=== PATIENT | male | born 1940 | race Caucasian/White ===

== ENCOUNTER 2018-06-02 07:20 | Emergency (ER) | payer MEDICARE, BC ==
[2018-06-02] MEDS ORDERED: 0.9 % SODIUM CHLORIDE 1000ML 1,000 ML IV PRN (07:47)
--- NOTE | 2018-06-02 08:02 | Emergency Department Record ---
History of Present Illness - General Chief complaint: Weakness Stated complaint: WEAKNESS,FALL Time Seen by Provider: 06/02/18 07:32 Source: Patient, RN notes reviewed Mode of Arrival: Ambulatory - History of Present Illness Initial comments: fall yesterday at 5pm and complaining of low back pain and stated prior to fall dizzy and weakness for one day with chilles and frequent urination. No cough and no sore throat ,no vomiting or diarrhea and patient is over weight. Onset/Timin -: Days(s) Location: Generalized Improves with: None Worsens with: None Associated Symptoms: Denies other symptoms - Jina Coma Scale Eye Response: (4) Open spontaneously Motor Response: (6) Obeys commands Verbal Response: (5) Oriented [place] Total: 15 - Symptoms of Stroke Symptom Onset Unknown: Yes Symptoms of stroke: Unsteady When Walking, Vertigo - Related Data Home Medications Medication Instructions Recorded Confirmed Last Taken Allopurinol 300 mg PO DAILY 06/02/18 06/02/18 Unknown Amlodipine Besylate/Benazepril 1 each PO QHS 06/02/18 06/02/18 Unknown [Amlodipine-Benazepril 5-10 mg] Carvedilol 6.25 mg PO BID 06/02/18 06/02/18 Unknown Montelukast Sodium [Singulair] 10 mg PO QHS 06/02/18 06/02/18 Unknown Simvastatin [Zocor] 5 mg PO DAILY 06/02/18 06/02/18 Unknown Tamsulosin HCl [Flomax] 0.4 mg PO DAILY 06/02/18 06/02/18 Unknown Previous Rx's Medication Instructions Recorded Ciprofloxacin HCl [Cipro] 500 mg PO Q12HR #20 tablet 06/02/18 Allergies Allergy/AdvReac Type Severity Reaction Status Date / Time No Known Drug Allergies Allergy Verified 06/02/18 07:25 Travel Screening - Travel/Exposure Within Last 30 Days Have you traveled within the last 30 days?: No Review of Systems Reviewed: No additional complaints except as noted below Constitutional: Reports: As per HPI, Chills, Weakness. Denies: Fever, Malaise, Night sweats, Weight change Eyes: Reports: As per HPI. Denies: Eye discharge, Eye pain, Photophobia, Vision change ENT: Reports: As per HPI. Denies: Congestion, Dental pain, Ear pain, Epistaxis , Hearing loss, Throat pain Respiratory: Reports: As per HPI. Denies: Cough, Dyspnea, Hemoptysis, Stridor, Wheezes Cardiovascular: Reports: As per HPI. Denies: Arrhythmia, Chest pain, Dyspnea on exertion, Edema, Murmurs, Orthopnea, Palpitations, Paroxysmal nocturnal dyspnea, Rheumatic Fever, Syncope Endocrine: Reports: As per HPI. Denies: Fatigue, Heat or cold intolerance, Polydipsia, Polyuria Gastrointestinal: Reports: As per HPI, Abdominal pain. Denies: Constipation, Diarrhea, Hematemesis, Hematochezia, Melena, Nausea, Vomiting Genitourinary: Reports: As per HPI. Denies: Dysuria, Frequency, Hematuria, Incontinence, Retention, Testicular pain, Testicular mass, Urgency Musculoskeletal: Reports: As per HPI. Denies: Arthralgia, Back pain, Gout, Joint swelling, Myalgia, Neck pain Skin: Reports: As per HPI. Denies: Bruising, Change in color, Change in hair/ nails, Lesions, Pruritus, Rash Neurological: Reports: As per HPI. Denies: Abnormal gait, Confusion, Headache, Numbness, Paresthesias, Seizure, Tingling, Tremors, Vertigo, Weakness Psychiatric: Reports: As per HPI. Denies: Anxiety, Auditory hallucinations, Depression, Homicidal thoughts, Suicidal thoughts, Visual hallucinations Hematological/Lymphatic: Reports: As per HPI. Denies: Anemia, Blood Clots, Easy bleeding, Easy bruising, Swollen glands Past Medical History - SOCIAL HISTORY Smoking Status: Former smoker Alcohol Use: Occasional Drug Use: None - RESPIRATORY Hx Respiratory Disorders: Yes Hx Sleep Apnea: Yes Hx of CPAP: Yes - CARDIOVASCULAR Hx Cardio Disorders: Yes Hx Hypertension: Yes Comment:: high cholesterol - NEURO Hx Neuro Disorders: No - GI Hx GI Disorders: No - Hx Genitourinary Disorders: Yes Hx Prostate Problems: Yes - ENDOCRINE Hx Endocrine Disorders: No - MUSCULOSKELETAL Hx Musculoskeletal Disorders: No - PSYCH Hx Psych Problems: No - HEMATOLOGY/ONCOLOGY Hx Hematology/Oncology Disorders: No Family Medical History Any Significant Family History?: No Physical Exam - General General Appearance: Alert, Oriented x3, Cooperative, No acute distress - Head Head exam: Normal inspection - Eye Eye exam: Normal appearance, PERRL Pupils: Normal accommodation - ENT ENT exam: Normal exam, Mucous membranes moist, Normal external ear exam, Normal orophraynx, TM's normal bilaterally Ear exam: Normal external inspection. negative: External canal tenderness Nasal Exam: Normal inspection. negative: Discharge, Sinus tenderness Mouth exam: Normal external inspection, Tongue normal Teeth exam: Normal inspection. negative: Dental caries Throat exam: Normal inspection. negative: Tonsillar erythema, Tonsillar exudate - Neck Neck exam: Normal inspection, Full ROM. negative: Tenderness - Respiratory Respiratory exam: Normal lung sounds bilaterally. negative: Respiratory distress - Cardiovascular Cardiovascular Exam: Regular rate, Normal rhythm, Normal heart sounds - GI/Abdominal GI/Abdominal exam: Soft, Normal bowel sounds. negative: Tenderness - Rectal Rectal exam: Deferred - exam: Deferred - Extremities Extremities exam: Normal inspection, Full ROM, Normal capillary refill. negative: Tenderness - Back Back exam: Reports: Normal inspection, Full ROM. Denies: Muscle spasm, Rash noted, Tenderness - Neurological Neurological exam: Alert, Normal gait, Oriented X3, Reflexes normal - Psychiatric Psychiatric exam: Normal affect, Normal mood - Skin Skin exam: Dry, Intact, Normal color, Warm Course Vital Signs 06/02/18 07:21 Temperature 99.2 F Pulse Rate 90 Respiratory 20 Rate Blood Pressure 146/60 Pulse Ox 97 - Reevaluation(s) Reevaluation #1: explained to patient and findings and will give toradol 15 mg iv for pain 06/02/18 09:30 Medical Decision Making - Lab Data Result diagrams: 06/02/18 07:30 06/02/18 07:30 Disposition Clinical Impression: UTI (urinary tract infection) Qualifiers: Urinary tract infection type: acute cystitis Hematuria presence: without hematuria Qualified Code(s): N30.00 - Acute cystitis without hematuria Lumbar contusion Qualifiers: Encounter type: initial encounter Qualified Code(s): S30.0XXA - Contusion of lower back and pelvis, initial encounter Disposition: Home, Self-Care Condition: (1) Good Instructions: Urinary Traction Infection in Older Adults (ED), Contusion in Adults (ED) Additional Instructions: follow up with Dr. Huber in [place] in 2 days drink fluids tylenol for pain every 6 hours and he has norco at home he could use one half norco if necessary Prescriptions: Ciprofloxacin HCl [Cipro] 500 mg PO Q12HR #20 tablet Forms: Patient Portal Access Time of Disposition: 11:10 Quality - Quality Measures Quality Measures: N/A - Blood Pressure Screening Does Patient Have Any of the Following: No, Active Dx of HTN Blood Pressure Classification: Hypertensive Reading Systolic Measurement: 146 Diastolic Measurement: 60 Screening for High Blood Pressure: Patient Exclusion, Hx of HTN [[id number]]
[2018-06-02 08:07] LABS: HEMATOCRIT 37.8 % (42.0-52.0); HEMOGLOBIN 12.6 gm/dl (14.0-18.0); MEAN CELL VOLUME 87.7 fl (81-97); MEAN CORPUSCULAR HEMOGLOBIN 29.2 pg (27-33); MEAN CORPUSCULAR HGB CONC 33.3 g/dl (32-36); MEAN PLATELET VOLUME 10.8 fl (7.4-10.4); PLATELET COUNT 159 K/uL (130-400); RED BLOOD COUNT 4.31 M/uL (4.40-5.70); RED CELL DISTRIBUTION WIDTH 14.9 % (11.5-14.5); WHITE BLOOD COUNT W/O DIFF 11.4 K/uL (4.2-12.2)
[2018-06-02 08:16] LABS: BLOOD UREA NITROGEN 20 mg/dL (8-23); CREATININE 0.9 mg/dL (0.7-1.2); EST GLOMERULAR FILTRATION RATE > 60 mL/min
[2018-06-02 08:18] LABS: URINE APPEARANCE SL CLOUDY; URINE BILIRUBIN NEGATIVE (NEGATIVE); URINE BLOOD MODERATE (NEGATIVE); URINE COLOR YELLOW; URINE GLUCOSE (UA) NEGATIVE (NEGATIVE); URINE KETONE TRACE (NEGATIVE); URINE LEUKOCYTE ESTERASE MODERATE (NEGATIVE); URINE NITRITE NEGATIVE (NEGATIVE)
[2018-06-02 08:19] LABS: GLUCOSE,RANDOM 133 mg/dL (74-109)
[2018-06-02 08:25] LABS: URINE BACTERIA 4+; URINE SQUAMOUS EPITHELIAL CELL 0 - 2 /hpf; URINE WBC >50 (0-2/hpf)
[2018-06-02] MEDS ORDERED: CIPROFLOXACIN LACTATE/D5W 400 MG/200 ML BAG IVPB ONE (08:33)
[2018-06-02] MEDS ORDERED: KETOROLAC 30 MG/ML VIAL IVP ONE (09:26)
[2018-06-02] MEDS ORDERED: CIPROFLOXACIN HCL 500 MG TABLET PO ONE (11:11)
--- NOTE | 2018-06-03 09:26 | RADIOLOGY REPORT ---
EXAM: CHEST, TWO VIEWS HISTORY: CHILLS. TECHNIQUE: Frontal and lateral views of the chest were obtained. Comparison: None. FINDINGS: Frontal and lateral views of the chest show a small patch of opacity in the left lung base on the frontal view, which may be in the lower lobe on the lateral view. The lung volumes are large. No pleural effusion. The cardiomediastinal silhouette is within normal limits. Bony structures show advanced degenerative changes of both shoulders. IMPRESSION: POSSIBLE EARLY AIR SPACE DISEASE IN THE LEFT LOWER LOBE. RECOMMEND FOLLOW-UP RADIOGRAPHS. JOB NUMBER: [id number] [facility]
--- NOTE | 2018-06-03 09:31 | RADIOLOGY REPORT ---
EXAM: LUMBAR SPINE, SIX VIEWS HISTORY: FALL. TECHNIQUE: Six views of the lumbar spine were obtained. Comparison: None. Encounter: Initial. FINDINGS: Osteoporosis is noted. Lateral view of the lumbar spine shows severe disk space narrowing at L4-L5 and L5-S1. The vertebral body heights are maintained. The sacroiliac joints are symmetric. Vascular calcifications are noted. Mildly distended loops of bowel may be an ileus pattern. IMPRESSION: DEGENERATIVE CHANGES OF THE SPINE WITHOUT EVIDENCE OF ACUTE FRACTURE. THE OSTEOPOROSIS LIMITS FRACTURE EVALUATION, IF THERE IS SIGNIFICANT CONCERN, CONSIDER CT FOR ADDITIONAL EVALUATION. JOB NUMBER: [id number] [facility]
== END 2018-06-02 11:33 | disposition home or self-care (01) ==
LOC: ER 07:20
DX: N30.00 Acute cystitis without hematuria (principal); Z87.891 Personal history of nicotine dependence; I10 Essential (primary) hypertension; E78.00 Pure hypercholesterolemia, unspecified; M54.5 Low back pain
CPT/HCPCS: 71046; 72110; 80048; 81001; 85027; 96365; 96375; 99284; J1885